=== PATIENT | female | born 1970 | race Caucasian/White ===

== ENCOUNTER 2024-01-04 21:57 | Emergency (ER) | payer MEDICARE, OTHER ==
[~2024-01-04] VITALS: Ht 167.6 cm; Wt 90.7 kg
[2024-01-04 22:39] LABS: BASOPHILS % (AUTO) 0.4 % (0.0-2.0); EOSINOPHILS # (AUTO) 0.2 K/uL (0.0-0.7); EOSINOPHILS % (AUTO) 1.8 % (0.0-6.0); HEMATOCRIT 36 % (33-45); HEMOGLOBIN 12.3 g/dL (11.5-14.8); LYMPHOCYTES # (AUTO) 2.3 K/uL (0.8-4.8); LYMPHOCYTES % (AUTO) 23.7 % (20.0-44.0); MEAN CORPUSCULAR HEMOGLOBIN 32 PG (26.0-33.0); MEAN CORPUSCULAR HGB CONC 34 g/dl (31.0-36.0); MEAN CORPUSCULAR VOLUME 93 fL (82-100); MONOCYTES # (AUTO) 0.9 K/uL (0.1-1.30); MONOCYTES % (AUTO) 8.8 % (2.0-12.0); NEUTROPHILS # (AUTO) 6.4 K/uL (1.8-8.9); NEUTROPHILS % (AUTO) 65.3 % (43.0-81.0); PLATELET COUNT (AUTO) 232 K/uL (150-450); RED BLOOD CELL COUNT(AUTO) 3.86 MIL/uL (4.0-5.2); WHITE BLOOD COUNT (AUTO) 9.8 K/uL (4.3-11.0)
[2024-01-04 22:54] LABS: ALANINE AMINOTRANSFERASE 10 U/L (12-78); ALCOHOL, BLOOD < 3 mg/dL (0-10); ALKALINE PHOSPHATASE 65 U/L (46-116); ASPARTATE AMINOTRANSFERASE 6 U/L (15-37); BILIRUBIN,DIRECT 0.1 mg/dL (0.0-0.2); BILIRUBIN,TOTAL 0.2 mg/dL (0.2-1.0); CALCIUM, SERUM 8.5 mg/dL (8.5-10.1); CARBON DIOXIDE 25 mmol/L (21-32); CHLORIDE 97 mmol/L (98-107); CREATININE 0.6 mg/dL (0.6-1.3); GLUCOSE 166 mg/dL (74-106); POTASSIUM 3.3 mmol/L (3.5-5.1); SALICYLATE 4.5 mg/dL (2.8-20.0); SODIUM SERUM 134 mmol/L (136-145); TOTAL PROTEIN, SERUM 6.8 g/dL (6.4-8.2); UREA NITROGEN, BLOOD 6 mg/dL (7-18)
[2024-01-04 22:55] LABS: ACETAMINOPHEN <10 ug/ml (10-30)
[2024-01-04 23:27] LABS: APPEARANCE,URINE CLEAR (CLEAR); BILIRUBIN,URINE NEGATIVE (NEGATIVE); BLOOD, URINE NEGATIVE Ery/uL (NEGATIVE); COLOR,URINE YELLOW (YELLOW); KETONES,URINE NEGATIVE (NEGATIVE); LEUKOCYTE ESTERASE ,URINE NEGATIVE (NEGATIVE); NITRITE, URINE NEGATIVE (NEGATIVE); PH,URINE 6.5 (5.0-8.0); PROTEIN,URINE NEGATIVE (NEGATIVE); UGLUCOSE NEGATIVE (NEGATIVE); UROBILINOGEN,URINE 0.2 EU/dL (0.2)
[2024-01-05 00:17] LABS: AMPHETAMINE, URINE NEGATIVE (NEGATIVE); BARBITURATE, URINE NEGATIVE (NEGATIVE); CANNABINOID, URINE NEGATIVE (NEGATIVE); COCCAINE, URINE NEGATIVE (NEGATIVE); OPIATE, URINE NEGATIVE (NEGATIVE); PHENCYCLIDINE SCREEN,URINE NEGATIVE (NEGATIVE)
[2024-01-05 00:18] LABS: BENZODIAZEPINE, URINE POSITIVE (NEGATIVE)
[2024-01-05 11:20] VITALS: BP 122/81; TEMP 98.2; O2SAT 98
[2024-01-05] MEDS ORDERED: ACETAMINOPHEN ES 500 MG TABLET PO ONE (11:30)
== END 2024-01-05 11:21 ==
LOC: ER 22:00
DX: R45.1 Restlessness and agitation (principal); E78.5 Hyperlipidemia, unspecified; J44.9 Chronic obstructive pulmonary disease, unspecified; E11.9 Type 2 diabetes mellitus without complications; F20.0 Paranoid schizophrenia; F32.9 Major depressive disorder, single episode, unspecified; Z20.822 Contact with and (suspected) exposure to COVID-19; Z91.013 Allergy to seafood; Z91.018 Allergy to other foods
CPT/HCPCS: 36415; 80048-TC; 80076-TC; 85025-TC; G0480

== ENCOUNTER 2024-08-26 00:44 | Inpatient (IN) | payer MEDICARE, OTHER ==
[~2024-08-26] VITALS: Ht 177.8 cm; Wt 81.6 kg
[2024-08-26 01:14] LABS: BASOPHILS # (AUTO) 0.1 K/uL (0.0-0.2); BASOPHILS % (AUTO) 0.9 % (0.0-2.0); EOSINOPHILS # (AUTO) 0.2 K/uL (0.0-0.7); EOSINOPHILS % (AUTO) 2.1 % (0.0-6.0); HEMATOCRIT 41 % (33-45); HEMOGLOBIN 14.2 g/dL (11.5-14.8); LYMPHOCYTES # (AUTO) 3.1 K/uL (0.8-4.8); LYMPHOCYTES % (AUTO) 32.8 % (20.0-44.0); MEAN CORPUSCULAR HEMOGLOBIN 33 PG (26.0-33.0); MEAN CORPUSCULAR HGB CONC 35 g/dl (31.0-36.0); MEAN CORPUSCULAR VOLUME 96 fL (82-100); MONOCYTES # (AUTO) 0.8 K/uL (0.1-1.30); NEUTROPHILS # (AUTO) 5.2 K/uL (1.8-8.9); NEUTROPHILS % (AUTO) 55.2 % (43.0-81.0); PLATELET COUNT (AUTO) 264 K/uL (150-450); RED BLOOD CELL COUNT(AUTO) 4.31 MIL/uL (4.0-5.2); RED CELL DISTRIBUTION WIDTH 13.3 % (11.5-15.0); WHITE BLOOD COUNT (AUTO) 9.4 K/uL (4.3-11.0)
[2024-08-26 01:24] LABS: APPEARANCE,URINE CLEAR (CLEAR); BILIRUBIN,URINE NEGATIVE (NEGATIVE); BLOOD, URINE NEGATIVE Ery/uL (NEGATIVE); COLOR,URINE YELLOW (YELLOW); KETONES,URINE NEGATIVE (NEGATIVE); LEUKOCYTE ESTERASE ,URINE NEGATIVE (NEGATIVE); NITRITE, URINE NEGATIVE (NEGATIVE); PROTEIN,URINE NEGATIVE (NEGATIVE); UGLUCOSE TRACE mg/dL (NEGATIVE); UROBILINOGEN,URINE 0.2 EU/dL (0.2)
[2024-08-26 01:28] LABS: ADD URINE CULTURE NO; BACTERIA,URINE Rare /HPF (None Seen); RBC,URINE 0-2 /HPF (0-2); SQUAMOUS EPITHELIAL CELL,UR Few /HPF (None Seen); WBC,URINE 0-2 /HPF (0-3)
[2024-08-26 01:31] LABS: CARBON DIOXIDE 27 mmol/L (21-32); CHLORIDE 98 mmol/L (98-107); CREATININE 0.7 mg/dL (0.6-1.3); GLUCOSE 199 mg/dL (74-106); POTASSIUM 3.9 mmol/L (3.5-5.1); SODIUM SERUM 133 mmol/L (136-145); UREA NITROGEN, BLOOD 6 mg/dL (7-18)
[2024-08-26 01:33] LABS: AMPHETAMINE, URINE NEGATIVE (NEGATIVE); BARBITURATE, URINE NEGATIVE (NEGATIVE); BENZODIAZEPINE, URINE NEGATIVE (NEGATIVE); CANNABINOID, URINE NEGATIVE (NEGATIVE); COCCAINE, URINE NEGATIVE (NEGATIVE); OPIATE, URINE NEGATIVE (NEGATIVE); PHENCYCLIDINE SCREEN,URINE NEGATIVE (NEGATIVE)
[2024-08-26 01:33] LABS: ALANINE AMINOTRANSFERASE 15 U/L (12-78); ALBUMIN 3.3 g/dL (3.4-5.0); ALCOHOL, BLOOD < 3 mg/dL (0-10); ALKALINE PHOSPHATASE 75 U/L (46-116); ASPARTATE AMINOTRANSFERASE 6 U/L (15-37); BILIRUBIN,DIRECT 0.1 mg/dL (0.0-0.2); BILIRUBIN,TOTAL 0.2 mg/dL (0.2-1.0); SALICYLATE 2.9 mg/dL (2.8-20.0); TOTAL PROTEIN, SERUM 6.9 g/dL (6.4-8.2)
[2024-08-26 01:44] LABS: ACETAMINOPHEN <10 ug/ml (10-30)
[2024-08-26 05:00] VITALS: BP 130/74; TEMP 98.3; O2SAT 97
[2024-08-26] MEDS ORDERED: MAGNESIUM HYDROXIDE 30 ML UDC PO PRN ×2 (05:00→15:00)
[2024-08-26] MEDS ORDERED: LORAZEPAM 1 MG TABLET PO PRN (05:00)
[2024-08-26] MEDS ORDERED: ZOLPIDEM TARTRATE 5 MG TABLET PO PRN (05:00)
[2024-08-26] MEDS: BLOOD SUGAR DIAGNOSTIC 1 EACH STRIP IN ONE (05:54)
[2024-08-26 05:55] VITALS: BP 130/74; TEMP 98.3; O2SAT 97
[2024-08-26] MEDS ORDERED: MAGN400O6 PO (08:22)
[2024-08-26] MEDS ORDERED: GLIP5TAB13 PO (08:22)
[2024-08-26] MEDS ORDERED: CRAN300T PO (08:22)
[2024-08-26] MEDS ORDERED: METF-442 PO (08:22)
[2024-08-26] MEDS ORDERED: HALO10TA13 PO (08:22)
[2024-08-26] MEDS ORDERED: AMLO5TAB4 PO (08:22)
[2024-08-26] MEDS ORDERED: GLUC1KIT IM (08:22)
[2024-08-26] MEDS ORDERED: DIVA500T2 PO (08:22)
[2024-08-26] MEDS ORDERED: TRAZ-182 PO (08:22)
[2024-08-26] MEDS ORDERED: HALO5TAB8 PO (08:22)
[2024-08-26] MEDS ORDERED: SITA50TA PO (08:22)
[2024-08-26] MEDS ORDERED: LIDO30AD10 TP (08:22)
[2024-08-26] MEDS ORDERED: IBUP-1955 PO (08:22)
[2024-08-26] MEDS ORDERED: DICL100G26 TP (08:22)
[2024-08-26 08:40] VITALS: BP 146/85; TEMP 97.7; O2SAT 98
[2024-08-26] MEDS: BENZTROPINE MESYLATE (1 MG) 1 MG TABLET PO SCH (11:19)
[2024-08-26] MEDS: HALOPERIDOL 5 MG TABLET PO SCH (11:19)
[2024-08-26] MEDS: DIVALPROEX SODIUM 500 MG TABLET.DR PO SCH (11:19)
[2024-08-26] MEDS ORDERED: LIDOCAINE 5% (PATCH) 1 EA PATCH TP PRN (15:00)
[2024-08-26] MEDS ORDERED: DEXTROSE 50%-WATER 50 ML DISP.SYRIN IV PRN (15:00)
[2024-08-26 15:36] LABS: THYROID STIMULATING HORMONE 4.66 uIU/mL (0.358-3.74)
[2024-08-26 16:20] VITALS: BP 144/88; TEMP 98.2; O2SAT 97
[2024-08-26] MEDS: LITHIUM CARBONATE 150 MG CAPSULE PO SCH (16:38)
[2024-08-26] MEDS: METFORMIN 500 MG TABLET PO SCH (16:38)
[2024-08-26] MEDS: glipiZIDE 5 MG TABLET PO SCH (16:38)
[2024-08-26] MEDS: risperiDONE 1 MG TABLET PO SCH (16:38)
[2024-08-26] MEDS: BLOOD SUGAR DIAGNOSTIC 1 EACH STRIP IN SCH (18:01)
[2024-08-26] MEDS: INSULIN REGULAR, HUMAN 100 UNIT/ML 3 ML VIAL SQ PRN (18:19)
[2024-08-26] MEDS: ACETAMINOPHEN 325 MG TABLET PO PRN (18:20)
[2024-08-26 20:00] VITALS: BP 159/86; TEMP 98.4; O2SAT 99
[2024-08-27 07:59] LABS: CHOLESTEROL 189 mg/dL (<200); HDL CHOLESTEROL 56 mg/dL (40-60); LDL 101 mg/dL (0-99); TRIGLYCERIDES 267 mg/dL (30-150)
[2024-08-27 08:00] VITALS: BP 127/70; TEMP 97.9; O2SAT 100
[2024-08-27 08:02] LABS: ALBUMIN 3.2 g/dL (3.4-5.0); BILIRUBIN,TOTAL 0.3 mg/dL (0.2-1.0); CALCIUM, SERUM 9.2 mg/dL (8.5-10.1); CREATININE 0.6 mg/dL (0.6-1.3); POTASSIUM 4.3 mmol/L (3.5-5.1); TOTAL PROTEIN, SERUM 6.9 g/dL (6.4-8.2)
[2024-08-27] MEDS: NICOTINE PATCH (14MG) 14 MG PATCH.TD24 TD SCH (08:56)
[2024-08-27] MEDS: LINAGLIPTIN 5 MG TABLET PO SCH (08:57)
[2024-08-27] MEDS: AMLODIPINE BESYLATE 5 MG TABLET PO SCH (08:58)
[2024-08-27] MEDS ORDERED: LORATADINE 10 MG TABLET PO SCH (13:30)
[2024-08-27] MEDS: LORAZEPAM 0.5 MG TABLET PO PRN (14:51)
[2024-08-27 16:00] VITALS: BP 131/82; TEMP 97.7; O2SAT 96
[2024-08-27 21:30] VITALS: BP 137/74; TEMP 97.9; O2SAT 97
[2024-08-27] MEDS: TEMAZEPAM 7.5 MG CAPSULE PO PRN (21:32)
[2024-08-27 21:44] VITALS: BP_SYST 175; BP_SYST 89; BP_DIAS 50; BP_DIAS 93; TEMP 97.5; TEMP 98.2; O2SAT 100; O2SAT 98
[2024-08-28 08:00] VITALS: BP 138/88; TEMP 98; O2SAT 98
[2024-08-28 16:00] VITALS: BP 120/85; TEMP 98; O2SAT 100
[2024-08-28] MEDS: MAG HYDROX/AL HYDROX/SIMETH 30 ML UDC PO PRN (16:44)
[2024-08-28] MEDS: ZOLPIDEM TARTRATE 5 MG TABLET PO PRN (20:45)
[2024-08-28 21:29] VITALS: BP 125/76; TEMP 97.9; O2SAT 98
[2024-08-29 08:00] VITALS: BP 124/76; TEMP 97.8; O2SAT 100
[2024-08-29 16:00] VITALS: BP 129/80; TEMP 98.2; O2SAT 100
[2024-08-29] MEDS: risperiDONE 1 MG TABLET PO SCH (16:34)
[2024-08-29 21:12] VITALS: BP 126/90; TEMP 98.2; O2SAT 99
[2024-08-30 08:00] VITALS: BP 131/90; TEMP 98.1; O2SAT 99
[2024-08-30 16:00] VITALS: BP 138/78; TEMP 98.6; O2SAT 100
[2024-08-30 19:52] VITALS: BP 138/87; TEMP 98.5; O2SAT 100
[2024-08-31 08:00] VITALS: BP 145/90; TEMP 98; O2SAT 100
[2024-08-31] MEDS: DIVALPROEX SODIUM 125 MG TABLET.DR PO SCH (09:22)
[2024-08-31] MEDS: DIVALPROEX SODIUM 500 MG TABLET.DR PO SCH ×2 (09:22→17:09)
[2024-08-31] MEDS ORDERED: DIVALPROEX SODIUM 500 MG TABLET.DR PO SCH (09:30)
[2024-08-31] MEDS: LITHIUM CARBONATE 150 MG CAPSULE PO SCH (13:23)
[2024-08-31 16:00] VITALS: BP_SYST 118; BP_SYST 129; BP_DIAS 73; BP_DIAS 77; TEMP 97.7; TEMP 98; O2SAT 100; O2SAT 97
[2024-08-31 20:00] VITALS: BP 142/79; TEMP 97.8; O2SAT 100
[2024-08-31] MEDS: DIVALPROEX SODIUM 250 MG TABLET.DR PO SCH (21:15)
[2024-08-31] MEDS ORDERED: DIVALPROEX SODIUM 125 MG TABLET.DR PO SCH (22:00)
[2024-09-01 08:00] VITALS: BP 139/82; TEMP 97.7; O2SAT 100
[2024-09-01 16:00] VITALS: BP 132/89; TEMP 97.7; O2SAT 100
[2024-09-01 19:45] VITALS: BP 137/87; TEMP 98.1; O2SAT 100
[2024-09-02 08:00] VITALS: BP 123/71; TEMP 97.4; O2SAT 98
[2024-09-02 16:00] VITALS: BP 136/88; TEMP 98; O2SAT 100
[2024-09-02 20:00] VITALS: BP 138/94; TEMP 97.5; O2SAT 100
[2024-09-03 08:00] VITALS: BP 148/87; TEMP 97.8; O2SAT 100
[2024-09-03 08:25] VITALS: BP 148/87
== END 2024-09-03 13:40 | DRG 885 ==
LOC: ER 00:53 → GPS 03:50
PROVIDERS: ADMIT Psychiatry & Neurology Psychiatry; ATTEND Nurse Practitioner Acute Care
DX: F25.0 Schizoaffective disorder, bipolar type (principal); E11.65 Type 2 diabetes mellitus with hyperglycemia; F29 Unspecified psychosis not due to a substance or known physiological condition; E78.5 Hyperlipidemia, unspecified; F41.9 Anxiety disorder, unspecified; J44.9 Chronic obstructive pulmonary disease, unspecified; M19.90 Unspecified osteoarthritis, unspecified site; E66.9 Obesity, unspecified; I10 Essential (primary) hypertension; Z79.899 Other long term (current) drug therapy; Z20.822 Contact with and (suspected) exposure to COVID-19; F31.2 Bipolar disorder, current episode manic severe with psychotic features; Z73.6 Limitation of activities due to disability; Z68.25 Body mass index [BMI] 25.0-25.9, adult
CPT/HCPCS: 36415; 80048-TC; 80053-TC; 80061-TC; 80076-TC; 80164-TC; 80178-TC; 81001; 82962-TC; 84439-TC; 84443-TC; 84481; 85025-TC; 87081-TC; G0480; J1815